=== PATIENT | male | born 1955 | race Two or more races ===

== ENCOUNTER 2016-11-11 07:11 | Emergency (ER) | payer BC ==
[~2016-11-11] VITALS: Ht 167.6 cm; Wt 90.7 kg
[2016-11-11] MEDS ORDERED: Solu-MEDROL 125mg Inj IVP ONE (07:15)
[2016-11-11] MEDS: Ipratropium 0.02% Inh Soln 2.5ml UD HHN SCH ×3 (07:32→08:30)
[2016-11-11] MEDS: Albuterol ud Inhalation HHN SCH ×3 (07:32→08:30)
--- NOTE | 2016-11-11 07:43 | Emergency Room Report ---
History of Present Illness General Chief Complaint: Dyspnea/Respdistress Source: EMS Present Illness HPI 61-year-old male presents to ED for evaluation. Per EMS patient was brought in by family to [facility] because he was very short of breath. Patient has history of asthma and COPD. Patient was wheezing with accessory muscle use. Patient was started on CPAP and nebulizer treatments. Given nitroglycerin for elevated blood pressure. Upon arrival patient is feeling better. Breath sounds have improved. No longer accessory muscle use. States symptoms started last night. Denies smoking. Denies drug use. Denies fevers chills. Denies chest pain. No aggravating relieving factors. Denies any other associated symptoms Allergies: Coded Allergies: No Known Allergies (Unverified , 11/11/16) Patient History Past Medical History: HTN, COPD Past Surgical History: none Pertinent Family History: none Social History: Reports: smoking, Denies: alcohol use, drug use Immunizations: UTD Reviewed Nursing Documentation: PMH: Agreed, PSxH: Agreed Nursing Documentation-PMH Past Medical History: No History, Except For Hx Hypertension: Yes Hx Asthma: Yes Hx COPD: Yes Hx Diabetes: Yes Review of Systems All Other Systems: negative except mentioned in HPI Physical Exam Vital Signs Date Time Temp Pulse Resp B/P Pulse Ox O2 Delivery O2 Flow Rate FiO2 11/11/16 07:07 96.8 83 18 174/76 100 Non-Rebreather 11/11/16 07:30 15.0 100 Sp02 EP Interpretation: reviewed, normal General Appearance: no apparent distress, alert, GCS 15, non-toxic Head: normocephalic Eyes: bilateral eye PERRL, bilateral eye normal inspection ENT: normal ENT inspection Neck: normal inspection Respiratory: chest non-tender, lungs clear, speaking full sentences, wheezing Gastrointestinal: normal inspection Rectal: deferred Genitourinary: no CVA tenderness Musculoskeletal: normal inspection Neurologic: alert, oriented x3, responsive, motor strength/tone normal, sensory intact, speech normal Psychiatric: normal inspection Skin: normal inspection Lymphatic: normal inspection Medical Decision Making Diagnostic Impression: Primary Impression: Asthma exacerbation ER Course Hospital Course 61-year-old male presents to ED complaining of SOB, wheezing Differential diagnoses include: URI, bronchitis, asthma/COPD, pneumonia Clinical course Patient placed on stretcher. After initial history and physical I ordered nebulizer treatments, Solu-Medrol, labs, EKG, chest x-ray Labs reviewed-no leukocytosis noted, hemoglobin/hematocrit stable, electrolytes okay, trop negative, influenza negative Chest x-ray shows ? interstitial infiltrate EKG - NSR On reassessment patient states he feels better. Per curb-65 criteria, patient does not require admission. I offered patient option for admission however patient prefers to be discharged to followup with his PMD. Patient can be safely discharged to home with outpatient therapy. Patient agrees with plan. Diagnosis - asthma exacerbation Stable and discharged home with prescriptions for prednisone, albuterol, Levaquin. Instructed to followup with PMD. Return to ED if symptoms recur or worsen Labs Test 11/11/16 07:00 11/11/16 08:45 White Blood Count 7.8 K/UL (4.8-10.8) Red Blood Count 4.94 M/UL (4.70-6.10) Hemoglobin 14.2 G/DL (14.2-18.0) Hematocrit 42.2 % (42.0-52.0) Mean Corpuscular Volume 85 FL (80-99) Mean Corpuscular Hemoglobin 28.8 PG (27.0-31.0) Mean Corpuscular Hemoglobin Concent 33.8 G/DL (32.0-36.0) Red Cell Distribution Width 12.3 % (11.6-14.8) Platelet Count 127 K/UL (150-450) Mean Platelet Volume 8.8 FL (6.5-10.1) Neutrophils (%) (Auto) 67.5 % (45.0-75.0) Lymphocytes (%) (Auto) 21.5 % (20.0-45.0) Monocytes (%) (Auto) 6.5 % (1.0-10.0) Eosinophils (%) (Auto) 3.8 % (0.0-3.0) Basophils (%) (Auto) 0.7 % (0.0-2.0) Sodium Level 142 mEQ/L (135-145) Potassium Level 4.0 mEQ/L (3.4-4.9) Chloride Level 105 mEQ/L (98-107) Carbon Dioxide Level 22 mEQ/L (20-30) Anion Gap 15 (5-15) Blood Urea Nitrogen 14 mg/dL (7-23) Creatinine 1.2 mg/dL (0.7-1.2) Estimat Glomerular Filtration Rate > 60 mL/min (>60) Glucose Level 194 mg/dL (74-106) Lactic Acid Level 2.00 mmol/L (0.66-2.22) Calcium Level 8.5 mg/dL (8.6-10.2) Total Bilirubin 0.6 mg/dL (0.0-1.2) Aspartate Amino Transf (AST/SGOT) 51 U/L (5-40) Alanine Aminotransferase (ALT/SGPT) 39 U/L (3-41) Alkaline Phosphatase 86 U/L (40-129) Total Creatine Kinase 223 U/L (38-174) Creatine Kinase MB 5.4 ng/mL (< 6.7) Creatine Kinase MB Relative Index 2.4 Troponin I < 0.30 ng/mL (<=0.30) Pro-B-Type Natriuretic Peptide 204 pg/mL (0-125) Total Protein 6.2 g/dL (6.6-8.7) Albumin 3.9 g/dL (3.5-5.2) Globulin 2.3 g/dL Albumin/Globulin Ratio 1.6 (1.0-2.7) EKG Diagnostic Results Rate: normal Rhythm: NSR ST Segments: other - twave inversions in lateral leads ASA given to the pt in ED: No Rhythm Strip Diag. Results EP Interpretation: yes Rhythm: NSR, no PVC's, no ectopy Chest X-Ray Diagnostic Results EP Interpretation: Yes EP Interpretation: No Findings: no pneumothorax, no acute cardiopulmonary disease, other - interstitial infiltrates Number of Views: 1 Last Vital Signs Date Time Temp Pulse Resp B/P Pulse Ox O2 Delivery O2 Flow Rate FiO2 11/11/16 07:30 80 17 100 Non-Rebreather 15.0 100 11/11/16 07:07 96.8 174/76 Status: improved Disposition: HOME, SELF-CARE Condition: Improved Scripts Levofloxacin* (LEVAQUIN*) 750 Mg Tablet 750 MG ORAL DAILY for 5 Days, TAB Prov: KIMBERLEY HANSON M.D. 11/11/16 Prednisone* (PREDNISONE*) 20 Mg Tablet 40 MG ORAL DAILY, #10 TAB Prov: KIMBERLEY HANSON M.D. 11/11/16 Albuterol Sulfate* (ALBUTEROL SULFATE MDI*) 8.5 Gm Hfa.aer.ad 2 PUFF INH Q4H, #1 INH 0 Refills Prov: KIMBERLEY HANSON M.D. 11/11/16 KIMBERLEY HANSON M.D. Nov 11, 2016 07:43
[2016-11-11 07:46] VITALS: BP 154/54
[2016-11-11 07:48] LABS: ALANINE AMINOTRANSFERASE 39 U/L (3-41); ALBUMIN/GLOBULIN RATIO 1.6 (1.0-2.7); ANION GAP 15 (5-15); ASPARTATE AMINO TRANSFERASE 51 U/L (5-40); CALCIUM 8.5 mg/dL (8.6-10.2); CARBON DIOXIDE 22 mEQ/L (20-30); CHLORIDE 105 mEQ/L (98-107); CREATININE 1.2 mg/dL (0.7-1.2); GLOMERULAR FILTRATION RATE > 60 mL/min (>60); HEMOLYSIS 10; SODIUM 142 mEQ/L (135-145); TOTAL PROTEIN 6.2 g/dL (6.6-8.7)
[2016-11-11 07:51] LABS: REFLEX LACTIC ACID YES OR NO YES; TROPONIN I < 0.30 ng/mL (<=0.30)
[2016-11-11 07:53] LABS: BASOPHILS % (AUTO) 0.7 % (0.0-2.0); EOSINOPHILS % (AUTO) 3.8 % (0.0-3.0); LYMPHOCYTES % (AUTO) 21.5 % (20.0-45.0); MEAN CORPUSCULAR HEMOGLOBIN 28.8 PG (27.0-31.0); MEAN CORPUSCULAR HGB CONC 33.8 G/DL (32.0-36.0); MEAN CORPUSCULAR VOLUME 85 FL (80-99); MEAN PLATELET VOLUME 8.8 FL (6.5-10.1); MONOCYTES % (AUTO) 6.5 % (1.0-10.0); NEUTROPHILS % (AUTO) 67.5 % (45.0-75.0); PLATELET COUNT 127 K/UL (150-450); RED BLOOD COUNT 4.94 M/UL (4.70-6.10); RED CELL DISTRIBUTION WIDTH 12.3 % (11.6-14.8); WHITE BLOOD COUNT 7.8 K/UL (4.8-10.8)
[2016-11-11 08:00] LABS: CKMB 5.4 ng/mL (< 6.7)
--- NOTE | 2016-11-11 08:40 | Diagnostic Imaging Report ---
Indications: Shortness of breath Technique: Portable AP chest Findings: Comparison: None Cardiac silhouette normal in size. Pulmonary vascular redistribution. Bilateral interstitial infiltrates. Mild prominence of right minor fissure. Otherwise, no pleural abnormalities. No abnormal mediastinal widening. IMPRESSION: Findings suggest congestive heart failure. In the absence of significant cardiomegaly, acute myocardial infarction must be considered. Prominence of right minor fissure. May represent technique or small pleural effusion.
[2016-11-11] MEDS ORDERED: PREDNISONE20 MG ORAL (08:45)
[2016-11-11] MEDS ORDERED: ALBUTEROL SULF8.5 GM INH (08:45)
[2016-11-11] MEDS ORDERED: LEVAQUIN750 MG ORAL (09:14)
[2016-11-11 09:16] VITALS: BP 184/70
--- NOTE | 2016-11-15 09:33 | Cardiology Report ---
APPROVED REPORT EKG Measurement Heart [id number] FL [id number] Normal sinus rhythm Abnormal ECG
== END 2016-11-11 09:20 | disposition home or self-care (01) ==
LOC: EDBD 07:11 → EMR 07:42
DX: J45.901 Unspecified asthma with (acute) exacerbation (principal); J44.9 Chronic obstructive pulmonary disease, unspecified; E11.9 Type 2 diabetes mellitus without complications; I10 Essential (primary) hypertension
CPT/HCPCS: 36415; 71010; 80053; 82550; 82553; 83605; 83880; 84484; 85025; 86710; 87040; 93005; 94640; 94664; 96361; 96374; 99284; J2930; J7040